=== PATIENT | female | born 1970 | race Caucasian/White ===

== ENCOUNTER 2017-03-16 14:32 | Emergency (ER) | payer MEDICAID ==
[2017-03-16 14:44] VITALS: RESP 16; O2SAT 95
[2017-03-16 16:53] VITALS: BP 116/76
--- NOTE | 2017-03-16 17:32 | EDPHY ---
H & P Time Seen by Provider: 03/16/17 16:50 HPI/ROS: CHIEF COMPLAINT: thrombosed hemorrhoid HISTORY OF PRESENT ILLNESS: 47-year-old female presents emergency department complaining of rectal pain and a thrombosed hemorrhoid. Patient was seen at urgent care today and they referred her to the emergency department. Patient states on Thursday she had a larger bowel movement than usual in the morning, by Thursday evening she had rectal pain. Patient reports this has increased since that time. She has been using preparation H, Sitz baths without success. Patient has a history of hemorrhoids when she was 3 years ago though never needed to be seen for them. Patient denies constipation. She is not taking any medications daily. No fevers, no abdominal pain. Smoking Status: Never smoked Physical Exam: GEN: Awake, alert, oriented, no acute distress RESP: nl resp effort MSK: Normal appearing : Thrombosed hemorrhoid to rectum SKIN: No rash on exposed skin Constitutional: Initial Vital Signs Temperature (C) 36.8 C 03/16/17 14:42 Heart Rate 65 03/16/17 14:42 Respiratory Rate 16 03/16/17 14:42 Blood Pressure 120/79 03/16/17 14:42 O2 Sat (%) 95 03/16/17 14:42 O2 Delivery Mode Room Air Allergies/Adverse Reactions: No Known Allergies Allergy (Verified 03/16/17 14:41) Home Medications: Medication Instructions Recorded NK [No Known Home Meds] 03/16/17 MDM/Departure - MDM Procedures: Procedure: Incision and Drainage thrombosed hemorrhoid The patient's hemorrhoid was noted to 2:00 position. Risks, benefits, alternatives discussed with the patient and consent obtained. The area was prepped and draped in sterile fashion. The patient received local anesthesia with 1% lidocaine with epinephrine. The thrombosed hemorrhoid was incised with a #11 blade and large clot was expressed. The patient tolerated the procedure well. The procedure was performed by myself. ED Course/Re-evaluation: A 47-year-old female presents with a thrombosed hemorrhoid. Hemorrhoid is anesthetized and excised without difficulty. I have recommended continue Sitz baths and preparation H. She has been given the general surgeon for follow-up. Patient has been given strict return precautions for significant bleeding, dizziness, lightheadedness, fevers, any new symptoms or concerns. Differential Diagnosis: Diagnosis considered but not limited to hemorrhoid, thrombosed hemorrhoid, abscess - Depart Disposition: Home, Routine, Self-Care Clinical Impression: Thrombosed hemorrhoids Condition: Good Instructions: Thrombosed Hemorrhoid (ED) Additional Instructions: Use Sitz baths and preparation H as you have been doing. Follow up the surgeon for symptoms that are not improving. Return to the emergency department for any worsening symptoms, new symptoms or concerns. Referrals: Kushal Owens MD [Medical Doctor] - As per Instructions (Surgeon on-call)
[2017-03-16 17:43] VITALS: PULSE 66; TEMP 98.4
== END 2017-03-16 17:43 | disposition home or self-care (01) ==
PROC: 069Y0ZZ Drainage of Lower Vein, Open Approach (ICD-10-PCS; principal; 2017-03-16)
DX: K64.5 Perianal venous thrombosis (principal)

== ENCOUNTER → 2018-05-17 | Outpatient (CLI) | payer MEDICAID | LOC: BMCIMAGING 11:05 | PROVIDERS: ATTEND Family Medicine | DX: M25.551 Pain in right hip (principal); M85.38 Osteitis condensans, other site; R93.8 Abnormal findings on diagnostic imaging of other specified body structures ==

== ENCOUNTER → 2018-05-28 | Outpatient (CLI) | payer MEDICAID | LOC: FIMAGING 19:40 | PROVIDERS: ATTEND Orthopaedic Surgery | DX: S73.191A Other sprain of right hip, initial encounter (principal); S73.111A Iliofemoral ligament sprain of right hip, initial encounter; M24.851 Other specific joint derangements of right hip, not elsewhere classified ==

== ENCOUNTER → 2018-07-22 | Outpatient (CLI) | payer MEDICAID | LOC: BMCIMAGING 09:33 | PROVIDERS: ATTEND Family Medicine | DX: M79.645 Pain in left finger(s) (principal) ==